=== PATIENT | male | born 1965 | race Caucasian/White ===

== ENCOUNTER 2023-10-29 10:32 | Day surgery (SDC) | payer OTHER, SELFPAY ==
[2023-10-21 11:09] VITALS: BMI 28.7
[2023-10-21 11:32] LABS: % Basophils 0.4 % (0-2); % Eosinophils 1.6 % (0-6); % Immature Granulocytes 0.5 % (0-0.5); % Lymphocytes 21.7 % (20.5-51.1); % Monocytes 9.1 % (1.7-9.3); % Neutrophils 66.7 % (42.2-75.2); Absolute Eosinophils 0.1 10^3/uL (0-0.7); Absolute Lymphocytes 1.2 10^3/uL (1.2-3.4); Absolute Monocytes 0.5 10^3/uL (0.1-0.6); Absolute Neutrophils 3.7 10^3/uL (1.4-6.5); Hematocrit 41.7 % (39.0-52.0); Hemoglobin 14.2 g/dL (13.0-18.0); Mean Corp Hgb Conc. 34.1 g/dL (33.0-37.0); Mean Platelet Volume 9.8 fL (7.4-10.4); Nucleated Red Blood Cells % 0 % (-); Platelet Count 202 10^3/uL (130-400); Red Blood Cell Count 4.74 10^6/uL (4.70-6.10); White Blood Cell Count 5.6 10^3/uL (4.8-10.8)
[2023-10-21 11:37] LABS: ALT (SGPT) 26 U/L (0-50); AST (SGOT) 22 U/L (17-59); Albumin 4.7 g/dl (3.5-5.0); Alkaline Phosphatase 70 U/L (38-126); Blood Urea Nitrogen 21 mg/dl (9-20); Calcium 9.6 mg/dl (8.4-10.2); Carbon Dioxide 26 mmol/L (22-30); Chloride 107 mmol/L (98-107); Estimated Creatinine Clearance 63 ml/min; Glucose 100 mg/dl (70-99); Magnesium 2.1 mg/dl (1.6-2.3); Sodium 140 mmol/L (135-145); Total Bilirubin 0.7 mg/dl (0.2-1.3); Total Protein 7.9 g/dl (6.3-8.2); eGFR > 60.00
[2023-10-29] VITALS (14 sets, daily range): BP systolic 121–148; BP diastolic 71–81
[2023-10-29] MEDS: NSS 500 IV (11:04)
[2023-10-29 13:44] LABS: ACT-LR - POC 321 Seconds (116-155)
[2023-10-29 14:00] LABS: ACT-LR - POC 284 Seconds (116-155)
--- NOTE | 2023-10-29 15:05 | ITS.CL.ABL ---
Diabetes Physician - Ablation
Ablation
Procedure Report:
ELECTROPHYSIOLOGY ABLATION STUDY
DATE:: October 29, 2023 REFERRING: Dr. Jean Pierre Camargo
INDICATION: Paroxysmal supraventricular tachycardia in the form of atrial fibrillation. History of polycystic kidney disease
HISTORY: See H and P. As above. History of iodine allergy
ANTIARRHYTHMIC DRUG: Sotalol
PRE-PROCEDURE JUNIE: No intracardiac thrombus on intracardiac ultrasound
PRESENTING RHYTHM: Sinus bradycardia
'TIME-OUT': called and confirmed.
SEDATION/ANESTHESIA: provided via the anesthesia department using general anesthesia (LMA).
INTRAVENOUS/ARTERIAL ACCESS:
Right femoral venous - 8Fr
Left femoral venous - 8 Fr, 6 Fr
Ybkdca-rh-[id number] suture was utilized for the right femoral vein and Vascade closure was utilized for the left femoral vein.
Ultrasound guidance for bilateral femoral vein access was utilized by me to obtain access with demonstration of normal anatomy
CHADS-VASC Score:
HAS-Bled Score
PROCEDURE:
1. A decapolar CS catheter was placed within the CS for mapping and pacing. This was also used as the reference catheter for the 3-D map.
2. The intracardiac ultrasound catheter was positioned in the RA to identify the FO for targeting of transseptal puncture, assist in identification of the pulmonary vein ostia, monitoring pre and post ablation pulmonary vein flow velocities,
monitoring for 'bubble' formation during RF application as a sign of thermal injury, and to monitor for pericardial effusion during mapping and ablation procedure. Left atrial size, LV ejection fraction, and pulmonary vein flows were monitored
pre and post ablation procedure. The other valves were inspected and found to be free of significant regurgitation or stenosis.
3. Half of the calculated heparin bolus was administered prior to the first transeptal puncture. Transseptal puncture was performed to diagnose RA and LA pressure so that safety of LA mapping and ablation could be further assessed, and to access
the left atrium and pulmonary veins for mapping and ablation. This entailed advancing an 8 Fr SL-1 sheath with dilator into the superior vena cava and withdrawing both (monitoring intracardiac ultrasound, fluoroscopy and tip pressure) with the tip
oriented toward the atrial septum. The fossa ovalis was engaged (indicated by sudden displacement of the sheath tip as well as tenting of the fossa seen on intracardiac ultrasound). Left atrial access required a pass with the Brockenbrough needle
extended. Left atrial catheter position was confirmed by pressure monitoring (RA mean pressure 8 mm Hg and LA mean presure 14 mm Hg), LA saturation (99%), as well as fluoroscopy. The sheath was advanced over the dilator and positioned in the left
atrium. The flex cath she was brought to the left atrium over ProTrac wire the remainder of the calculated heparin bolus was administered and heparin was
infused to maintain ACT at 300 -350 seconds throughout the case.
4. RA pacing was performed via the proximal decapolar poles and LA pacing was performed via the distal decapolr poles.
5. A quadrapolar catheter was first positioned at the His position for His Bundle recording which was tagged via the 3-D Navex sytem, and then passed to the RVA for RV pacing and recording.
6. The ablation catheter was positioned through one of the transeptal seaths and a 20 pole ring mapping catheter was positioned through the second seath into the LA and then the ostia of the LIPV, LSPV, RSPV and the RIPV.
7. Next, a 3-D map was created using Navex. A 3-D reconstructed CT image was compared to the 3-D Navex map to assist in anatomic interpretation, mapping and ablation. The CT image and the NavX image were fused.
8. No intravenous dye was utilized for the procedure. One 4-minute freeze ellipse. Pulmonary vein, 1 distinct 3 1 sting to the left inferior pulmonary vein, 3 minutes to the right superior pulmonary vein, and 1 distinct 3 and 1 distinct 2-minute
freezing application of the right inferior pulmonary vein with a third freezing application held at 86 seconds given patient movement. Interest next block was confirmed in all 4 pulmonary veins and follow-up EP study did not induce any other
tachyarrhythmia or extrapulmonary triggers for atrial fibrillation.
9. Normal sinus node and AV kike function noted.
TOTAL FLOURO TIME: 9.7 minutes 14 mGy
TOTAL RF DURATION: 0 minutes
REVERSAL OF HEPARIN: 35 mg of protamine, slow IV administration
COMPLICATIONS:
None
Intracardiac US shows no pericardial effusion post ablation.
SUMMARY:
Complex left atrial mapping and ablation.
Isolation of all 4 pulmonary veins as above with a 28 mm cryoballoon
RECOMMENDATIONS:
1. Admit to monitored bed.
2. Resume anticoagulation
3. Continue sotalol for 1 month then discontinue
4. Out of bed 4 hours and consider same-day discharge
Copy to: Dr. Jean Pierre Camargo
--- NOTE | 2023-10-29 15:48 | W.PN.UPDATE ---
Update Note
Progress Note Update
58 yo WM s/p PVI (same day). He has some mild chest heaviness, no sob, carlos clears, b/l groins c/d/i, EKG SR. He will continue OAC with Xarelto dose tonight at 8pm. He will continue sotalol. Activity restrictions reviewed. He will f/u Dr. Camargo as
scheduled. He is for d/c home after 7pm if groins stable, and amb w/o dizziness.
SUMMARY:�
Complex left atrial mapping and ablation.
Isolation of all 4 pulmonary veins as above with a 28 mm cryoballoon
RECOMMENDATIONS:
1. Admit to monitored bed.
2. Resume anticoagulation
3.� Continue sotalol for 1 month then discontinue
4.� Out of bed 4 hours and consider same-day discharge
Copy to: Dr. Jean Pierre Camargo
== END 2023-10-29 19:12 | disposition home or self-care (01) ==
LOC: CATH 10:32
PROVIDERS: ATTENDING PHYSICIAN Internal Medicine Cardiovascular Disease; FAMILY PHYSICIAN Internal Medicine; OTHER PHYSICIAN Internal Medicine Cardiovascular Disease
DX: I48.0 Paroxysmal atrial fibrillation (principal); I10 Essential (primary) hypertension; E78.5 Hyperlipidemia, unspecified; Z86.73 Personal history of transient ischemic attack (TIA), and cerebral infarction without residual deficits; J45.909 Unspecified asthma, uncomplicated; G47.33 Obstructive sleep apnea (adult) (pediatric); J32.8 Other chronic sinusitis; K21.9 Gastro-esophageal reflux disease without esophagitis; Q61.3 Polycystic kidney, unspecified; Z86.19 Personal history of other infectious and parasitic diseases; N40.0 Benign prostatic hyperplasia without lower urinary tract symptoms; F41.9 Anxiety disorder, unspecified; Z87.891 Personal history of nicotine dependence; Z79.01 Long term (current) use of anticoagulants
CPT/HCPCS: C1766; C1894; C1730; C1892; C1893; C1733; C1759; 36415; 76937; 80053; 83735; 85025; 85347; 85610; 86850; 86900; 86901; 93005; 93656; C1760